=== PATIENT | female | born 1965 | race American Indian/Alaskan Native ===

== ENCOUNTER 2017-01-15 21:32 | Emergency (ER) | payer BC, OTHER ==
[2017-01-15] MEDS ORDERED: Albuterol/Ipratropium 3.0-0.5 MG/3 ML Neb Soln NEB ONE (22:15)
[2017-01-15 22:22] LABS: CHLORIDE,CL 101 mmol/L (101-111); SODIUM,NA 136 mmol/L (135-145)
[2017-01-15] MEDS ORDERED: Nitroglycerin 0.4 MG Tab.SL SL ONE (22:45)
[2017-01-15 22:50] VITALS: BP 121/71
[2017-01-15] MEDS ORDERED: Benzonatate 100 MG Cap PO ONE (23:18)
[2017-01-15] MEDS ORDERED: methylPREDNISolone Sodium Succinate 125 MG/2 ML SDV IVPUSH ONE (23:19)
--- NOTE | 2017-01-16 00:11 | EDM.PDOC ---
ED HISTORY OF PRESENT ILLNESS - General Chief Complaint: Respiratory Problem Stated Complaint: PAIN UNDER ARM [id number] Time Seen by Provider: 01/15/17 21:40 Source of Information: Reports: Patient History Limitations: Reports: No limitations - History of Present Illness INITIAL COMMENTS - FREE TEXT/NARRATIVE: c/o acute onset of cough 3 hours ago with left pain below shoulder blade and axilla, dexcribes as sharp pain worse with cough and movment, tingling in axilla. No cardiac hx. Positive RA on Methotexate, follwoed for rheumatology in [facility]. No recent fever, no body aches. Cough productive at times. Mild SOB with coughing. Timing/Duration: Reports: Hour(s): - Related Data Allergies/ADRs: Allergies Allergy/AdvReac Type Severity Reaction Status Date / Time clindamycin Allergy Rash Verified 01/15/17 21:44 Gold Salts Allergy Rash Verified 01/15/17 21:44 ibuprofen Allergy Rash Verified 01/15/17 21:44 Penicillins Allergy Rash Verified 01/15/17 21:44 tramadol [From Ultram] Allergy Rash Verified 01/15/17 21:44 Home Meds: Home Meds Cevimeline HCl 1 cap PO ASDIRECTED 07/28/16 [History] Etanercept [Enbrel] 1 injection SQ .QTUESDAY 07/28/16 [History] Folic Acid [Folic Acid] 1 mg PO DAILY 07/28/16 [History] Methotrexate [Methotrexate] 15 mg PO .QTUESDAY 07/28/16 [History] Nabumetone 500 mg PO BID 07/28/16 [History] Omeprazole [Omeprazole] 20 mg PO DAILY 07/28/16 [History] Ranitidine [Zantac] 150 mg PO DAILY 07/28/16 [History] Pseudoephedrine [Sudogest] 30 mg PO DAILY 10/27/16 [History] Past Medical History HEENT History: Reports: Cataract, Retinal detachment Cardiovascular History: Reports: None Respiratory History: Reports: None Gastrointestinal History: Reports: GERD Genitourinary History: Reports: None [employer] WORK[employer] History: Reports: Musculoskeletal History: Reports: Arthritis, RA Neurological History: Reports: None Psychiatric History: Reports: None Endocrine/Metabolic History: Reports: None Hematologic History: Reports: None Immunologic History: Reports: None Oncologic (Cancer) History: Reports: None Dermatologic History: Reports: None - Infectious Disease History Infectious Disease History: Reports: Chicken pox - Past Surgical History HEENT Surgical History: Reports: Eye surgery Other HEENT Surgeries/Procedures: surg for detached retina GI Surgical History: Reports: None Female Surgical History: Reports: section Musculoskeletal Surgical History: Reports: Arthroscopic knee, Knee replacement Social & Family History - Family History HEENT: Reports: Cataract, Retinal detachment Cardiac: Reports: Hypertension Respiratory: Reports: None GI: Reports: None : Reports: Renal disease/insufficiency OBGYN: Reports: None Musculoskeletal: Reports: Arthritis Neurological: Reports: Seizure Psychiatric: Reports: None Endocrine/Metabolic: Reports: Diabetes, type I, Diabetes, type II Hematologic: Reports: None Immunologic: Reports: None Oncologic: Reports: Colon - Tobacco Use Smoking Status *Q: Never Smoker Used Tobacco, but Quit: No Second Hand Smoke Exposure: No - Caffeine Use Caffeine Use: Reports: Coffee - Recreational Drug Use Recreational Drug Use: No ED ROS GENERAL - Review of Systems Review Of Systems: See Below Constitutional: Denies: fever, diaphoresis HEENT: Reports: Sinus problem (left with posterior drainage) Respiratory: Reports: cough Cardiovascular: Denies: Edema, Lightheadedness, Palpitations Endocrine: Reports: no symptoms GI/Abdominal: Reports: No symptoms : Reports: no symptoms Musculoskeletal: Reports: back pain (below scapula and axilla, worse with breathing and cough, unchanged with movmement) Skin: Reports: no symptoms Neurological: Reports: no symptoms Psychiatric: Reports: No symptoms Immunologic: Reports: other (Methotrexate use for Rheumatoid arthritis) ED EXAM, GENERAL - Physical Exam Exam: See Below Exam Limited By: No limitations General Appearance: alert, mild distress (frequent cough) Eye Exam: bilateral eye: PERRL Ears: normal TMs Nose: normal inspection Throat/Mouth: Normal inspection Head: atraumatic, normocephalic Neck: normal inspection, full range of motion. No: lymphadenopathy (L), lymphadenopathy (R) Respiratory/Chest: no respiratory distress, lungs clear, other (frequent dry cough). No: decreased breath sounds, wheezing Cardiovascular: normal peripheral pulses, regular rate, rhythm, no edema GI/Abdominal: normal bowel sounds, soft Back Exam: normal inspection Neurological: alert, oriented, normal cognition, no motor/sensory deficits Psychiatric: normal affect Skin Exam: Warm, Dry, Intact, Normal color Course - Vital Signs Last Recorded V/S: Last Vital Signs Temp 97.4 F 01/15/17 22:23 Pulse 59 L 01/15/17 22:23 Resp 16 01/15/17 22:23 BP 121/71 01/15/17 22:49 Pulse Ox 100 01/15/17 22:23 - Orders/Labs/Meds Orders: Active Orders 24 hr Category Date Time Status EKG 12 Lead [EKG Documentation Completion] [RC] URGENT Care 01/15/17 21:48 Active RT Aerosol Therapy [RC] ASDIRECTED Care 01/15/17 22:16 Active Labs: Laboratory Tests 01/15/17 01/15/17 01/15/17 Range/Units 21:55 21:55 21:55 WBC 6.7 (5.0-10.0) 10^3/uL RBC 4.47 (4.2-5.4) 10^6/uL Hgb 12.5 (12.0-16.0) g/dL Hct 37.7 (37.0-47.0) % MCV 84.3 (80-100) fL MCH 28.0 (27.0-34.0) pg MCHC 33.2 (33.0-35.0) g/dL Plt Count 187 (150-450) 10^3/uL Neut % (Auto) 38.0 L (42.2-75.2) % Lymph % (Auto) 48.6 (20.5-50.1) % Ross % (Auto) 9.6 H (2-8) % Eos % (Auto) 3.3 H (1.0-3.0) % Baso % (Auto) 0.5 (0.0-1.0) % PT 8.6 L (9.0-12.0) SEC INR 0.9 (0.9-1.2) D-Dimer, Quantitative 137 (0-400) ng/mL Sodium 136 (135-145) mmol/L Potassium 3.7 (3.6-5.0) mmol/L Chloride 101 (101-111) mmol/L Carbon Dioxide 26.0 (21.0-31.0) mmol/L Anion Gap 12.7 BUN 11 (7-18) mg/dL Creatinine 0.6 (0.6-1.3) mg/dL Est Cr Clr Drug Dosing 106.18 mL/min Estimated GFR (MDRD) > 60 BUN/Creatinine Ratio 18.33 Glucose 100 (74-105) mg/dL Calcium 8.9 (8.4-10.2) mg/dl Total Bilirubin 0.4 (0.2-1.0) mg/dL AST 20 (10-42) IU/L ALT 23 (10-60) IU/L Alkaline Phosphatase 87 (42-121) IU/L CK-MB (CK-2) (0.4-4.7) ng/mL Troponin I 0.03 H* (0.00-0.02) ng/ml C-Reactive Protein (0.0-1.3) mg/dL B-Natriuretic Peptide 52 (0-100) pg/ml Total Protein 7.7 (6.7-8.2) g/dl Albumin 3.9 (3.2-5.5) g/dl Globulin 3.8 Albumin/Globulin Ratio 1.03 Urine Color (YELLOW) Urine Appearance (CLEAR) Urine pH (5.0-9.0) Ur Specific [place] (1.005-1.030) Urine Protein (NEGATIVE) Urine Glucose (UA) (NEGATIVE) Urine Ketones (NEGATIVE) Urine Occult Blood (NEGATIVE) Urine Nitrite (NEGATIVE) Urine Bilirubin (NEGATIVE) Urine Urobilinogen (0.2-1.0) mg/dL Ur Leukocyte Esterase (NEGATIVE) Urine RBC /HPF Urine WBC (0-5/HPF) /HPF Ur Epithelial Cells /HPF Urine Bacteria (0-FEW/HPF) /HPF Urine Opiates Screen (NEGATIVE) Ur Oxycodone Screen (NEGATIVE) Urine Methadone Screen (NEGATIVE) Ur Barbiturates Screen (NEGATIVE) U Tricyclic Antidepress (NEGATIVE) Ur Phencyclidine Scrn (NEGATIVE) Ur Amphetamine Screen (NEGATIVE) U Methamphetamines Scrn (NEGATIVE) Urine MDMA Screen (NEGATIVE) U Benzodiazepines Scrn (NEGATIVE) Urine Cocaine Screen (NEGATIVE) U Marijuana (THC) Screen (NEGATIVE) 01/15/17 01/15/17 01/15/17 Range/Units 21:55 21:55 23:14 WBC (5.0-10.0) 10^3/uL RBC (4.2-5.4) 10^6/uL Hgb (12.0-16.0) g/dL Hct (37.0-47.0) % MCV (80-100) fL MCH (27.0-34.0) pg MCHC (33.0-35.0) g/dL Plt Count (150-450) 10^3/uL Neut % (Auto) (42.2-75.2) % Lymph % (Auto) (20.5-50.1) % Ross % (Auto) (2-8) % Eos % (Auto) (1.0-3.0) % Baso % (Auto) (0.0-1.0) % PT (9.0-12.0) SEC INR (0.9-1.2) D-Dimer, Quantitative (0-400) ng/mL Sodium (135-145) mmol/L Potassium (3.6-5.0) mmol/L Chloride (101-111) mmol/L Carbon Dioxide (21.0-31.0) mmol/L Anion Gap BUN (7-18) mg/dL Creatinine (0.6-1.3) mg/dL Est Cr Clr Drug Dosing mL/min Estimated GFR (MDRD) BUN/Creatinine Ratio Glucose (74-105) mg/dL Calcium (8.4-10.2) mg/dl Total Bilirubin (0.2-1.0) mg/dL AST (10-42) IU/L ALT (10-60) IU/L Alkaline Phosphatase (42-121) IU/L CK-MB (CK-2) 1.70 (0.4-4.7) ng/mL Troponin I (0.00-0.02) ng/ml C-Reactive Protein 2.7 H (0.0-1.3) mg/dL B-Natriuretic Peptide (0-100) pg/ml Total Protein (6.7-8.2) g/dl Albumin (3.2-5.5) g/dl Globulin Albumin/Globulin Ratio Urine Color Yellow (YELLOW) Urine Appearance Clear (CLEAR) Urine pH 6.0 (5.0-9.0) Ur Specific [place] 1.010 (1.005-1.030) Urine Protein Negative (NEGATIVE) Urine Glucose (UA) Negative (NEGATIVE) Urine Ketones Negative (NEGATIVE) Urine Occult Blood Negative (NEGATIVE) Urine Nitrite Negative (NEGATIVE) Urine Bilirubin Negative (NEGATIVE) Urine Urobilinogen 0.2 (0.2-1.0) mg/dL Ur Leukocyte Esterase Negative (NEGATIVE) Urine RBC Not seen /HPF Urine WBC 0-5 (0-5/HPF) /HPF Ur Epithelial Cells Few /HPF Urine Bacteria Few (0-FEW/HPF) /HPF Urine Opiates Screen (NEGATIVE) Ur Oxycodone Screen (NEGATIVE) Urine Methadone Screen (NEGATIVE) Ur Barbiturates Screen (NEGATIVE) U Tricyclic Antidepress (NEGATIVE) Ur Phencyclidine Scrn (NEGATIVE) Ur Amphetamine Screen (NEGATIVE) U Methamphetamines Scrn (NEGATIVE) Urine MDMA Screen (NEGATIVE) U Benzodiazepines Scrn (NEGATIVE) Urine Cocaine Screen (NEGATIVE) U Marijuana (THC) Screen (NEGATIVE) 01/15/17 Range/Units 23:14 WBC (5.0-10.0) 10^3/uL RBC (4.2-5.4) 10^6/uL Hgb (12.0-16.0) g/dL Hct (37.0-47.0) % MCV (80-100) fL MCH (27.0-34.0) pg MCHC (33.0-35.0) g/dL Plt Count (150-450) 10^3/uL Neut % (Auto) (42.2-75.2) % Lymph % (Auto) (20.5-50.1) % Ross % (Auto) (2-8) % Eos % (Auto) (1.0-3.0) % Baso % (Auto) (0.0-1.0) % PT (9.0-12.0) SEC INR (0.9-1.2) D-Dimer, Quantitative (0-400) ng/mL Sodium (135-145) mmol/L Potassium (3.6-5.0) mmol/L Chloride (101-111) mmol/L Carbon Dioxide (21.0-31.0) mmol/L Anion Gap BUN (7-18) mg/dL Creatinine (0.6-1.3) mg/dL Est Cr Clr Drug Dosing mL/min Estimated GFR (MDRD) BUN/Creatinine Ratio Glucose (74-105) mg/dL Calcium (8.4-10.2) mg/dl Total Bilirubin (0.2-1.0) mg/dL AST (10-42) IU/L ALT (10-60) IU/L Alkaline Phosphatase (42-121) IU/L CK-MB (CK-2) (0.4-4.7) ng/mL Troponin I (0.00-0.02) ng/ml C-Reactive Protein (0.0-1.3) mg/dL B-Natriuretic Peptide (0-100) pg/ml Total Protein (6.7-8.2) g/dl Albumin (3.2-5.5) g/dl Globulin Albumin/Globulin Ratio Urine Color (YELLOW) Urine Appearance (CLEAR) Urine pH (5.0-9.0) Ur Specific [place] (1.005-1.030) Urine Protein (NEGATIVE) Urine Glucose (UA) (NEGATIVE) Urine Ketones (NEGATIVE) Urine Occult Blood (NEGATIVE) Urine Nitrite (NEGATIVE) Urine Bilirubin (NEGATIVE) Urine Urobilinogen (0.2-1.0) mg/dL Ur Leukocyte Esterase (NEGATIVE) Urine RBC /HPF Urine WBC (0-5/HPF) /HPF Ur Epithelial Cells /HPF Urine Bacteria (0-FEW/HPF) /HPF Urine Opiates Screen Negative (NEGATIVE) Ur Oxycodone Screen Negative (NEGATIVE) Urine Methadone Screen Negative (NEGATIVE) Ur Barbiturates Screen Negative (NEGATIVE) U Tricyclic Antidepress Negative (NEGATIVE) Ur Phencyclidine Scrn Negative (NEGATIVE) Ur Amphetamine Screen Negative (NEGATIVE) U Methamphetamines Scrn Negative (NEGATIVE) Urine MDMA Screen Negative (NEGATIVE) U Benzodiazepines Scrn Negative (NEGATIVE) Urine Cocaine Screen Negative (NEGATIVE) U Marijuana (THC) Screen Negative (NEGATIVE) Meds: Medications Discontinued Medications Generic Name Dose Route Start Last Admin Trade Name Freq PRN Reason Stop Dose Admin Albuterol/Ipratropium 3 ml 01/15/17 22:15 01/15/17 22:22 Duoneb 3.0-0.5 Mg/3 Ml NEB 01/15/17 22:16 3 ml ONETIME ONE Administration Benzonatate 200 mg 01/15/17 23:18 01/15/17 23:29 Tessalon Perles PO 01/15/17 23:19 200 mg ONETIME ONE Administration Methylprednisolone Sodium Succinate 125 mg 01/15/17 23:19 01/15/17 23:29 Solu-Medrol IVPUSH 01/15/17 23:20 125 mg ONETIME ONE Administration Nitroglycerin 0.4 mg 01/15/17 22:45 01/15/17 22:49 Nitrostat SL 01/15/17 22:46 0.4 mg ONETIME ONE Administration - Re-Assessments/Exams Free Text/Narrative Re-Assessment/Exam: Ekg unremarkable, NSR. Cough improved following neb. Pain unchanged. Nitro without change. Labs returend with elevated troponin, TC consult Dr. Terry recommend transfer. [facility] no tele bed available. Tx via [facility] to [place] for further evaluation elevated troponin. Pain reloved at time of transfer. Vitals stable, Dr. Yuan [place] ED accepting of patient. Departure - Departure Time of Disposition: 00:09 Disposition: DC/Tfer to Acute Hospital 02 Condition: undetermined Clinical Impression: Chest pain, atypical, Elevated troponin, Cough Rheumatoid arthritis Qualifiers: Rheumatoid arthritis location: unspecified site Rheumatoid factor presence: unspecified presence Qualified Code(s): M06.9 - Rheumatoid arthritis, unspecified Forms: ED Department Discharge - My Orders Last 24 Hours: My Active Orders 01/15/17 21:48 EKG 12 Lead [EKG Documentation Completion] [RC] URGENT 01/15/17 22:16 RT Aerosol Therapy [RC] ASDIRECTED - Assessment/Plan Last 24 Hours: My Active Orders 01/15/17 21:48 EKG 12 Lead [EKG Documentation Completion] [RC] URGENT 01/15/17 22:16 RT Aerosol Therapy [RC] ASDIRECTED
--- NOTE | 2017-03-01 12:52 | EKG ---
01/15/2017 - FERCHO ANDERSON - Twelve-lead EKG shows normal sinus rhythm. No significant ST elevation or ST depression noted on this 12-lead EKG. Nonspecific ST-T changes noted on lead V2, V3. Heart rate of 64. [facility] /[id number]
== END 2017-01-16 00:15 ==
LOC: DL.ED 21:32
DX: R07.89 Other chest pain (principal); M06.9 Rheumatoid arthritis, unspecified; R79.89 Other specified abnormal findings of blood chemistry; K21.9 Gastro-esophageal reflux disease without esophagitis; M19.90 Unspecified osteoarthritis, unspecified site; Z88.0 Allergy status to penicillin; Z88.6 Allergy status to analgesic agent; Z88.5 Allergy status to narcotic agent; Z88.1 Allergy status to other antibiotic agents; Z79.899 Other long term (current) drug therapy
CPT/HCPCS: 36415; 71020; 80053; 80305; 81001; 82553; 83880; 84484; 85025; 85379; 85610; 86140; 87804; 93005; 94640; 96374; 99285; A9270; J2930

== ENCOUNTER 2017-10-14 07:03 | Day surgery (SDC) | payer BC, OTHER ==
[~2017-10-14 07:03] MED LIST: Lactated Ringers 1,000 ML IV SCH; Sodium Chloride 0.9% 10 ML Syringe FLUSH PRN
[2017-10-14] MEDS ORDERED: Ondansetron 4 MG/2 ML SDV IV ONE (07:04)
[2017-10-14] MEDS ORDERED: Lidocaine 1% 30 ML SDV INJECT ONE ×2 (07:04→11:30)
[2017-10-14] MEDS ORDERED: Lidocaine 2% 20 ML MDV INJECT ONE (07:04)
[2017-10-14] MEDS ORDERED: Midazolam 1 MG/ML 2 ML SDV IV ONE (07:04)
[2017-10-14] MEDS ORDERED: fentaNYL 100 MCG/2 ML SDV IV ONE (07:04)
[2017-10-14] MEDS ORDERED: Dexamethasone 4 MG/ML SDV IV ONE (07:04)
[2017-10-14] MEDS ORDERED: Propofol 200 MG/20 ML SDV IV ONE (07:04)
[2017-10-14] MEDS ORDERED: Lactated Ringers 1,000 ML IV ONE (07:04)
[2017-10-14] MEDS ORDERED: Ketorolac 30 MG/ML SDV IVPUSH ONE (07:04)
[2017-10-14] MEDS ORDERED: Bupivacaine 0.25% 10 ML SDV INJECT ONE (07:04)
[2017-10-14] MEDS ORDERED: Propofol 200 MG/20 ML SDV ONE (07:23)
[2017-10-14] MEDS ORDERED: fentaNYL 100 MCG/2 ML SDV ONE (07:23)
[2017-10-14] MEDS ORDERED: Midazolam 1 MG/ML 2 ML SDV ONE (07:23)
[2017-10-14] MEDS ORDERED: Bupivacaine 0.5% 10 ML SDV ONE (07:55)
[2017-10-14] MEDS ORDERED: Lidocaine 1% 30 ML SDV ONE (07:55)
[2017-10-14] MEDS ORDERED: Lidocaine 1% 10 ML MDV INJECT ONE (08:21)
[2017-10-14] MEDS ORDERED: Bupivacaine 0.5% 10 ML SDV INJECT ONE ×2 (08:21→11:30)
[2017-10-14] MEDS ORDERED: Acetaminophen/oxyCODONE 325-5 MG Tab PO PRN (12:05)
--- NOTE | 2017-10-14 12:05 | PCM.OPNOTE ---
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 TT 92 mins, down then back up for 57 mins. [place] 3.0 cannulated screws, matteo place and 3.5 non locking screws placed. Well padded L&U splint applied with foot in neutral.
[2017-10-14] MEDS ORDERED: fentaNYL 100 MCG/2 ML SDV IVPUSH ONE (12:28)
--- NOTE | 2017-10-14 17:10 | OR ---
DATE: 10/14/2017 PREOPERATIVE DIAGNOSES: 1. 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 2. Arthritis of the left first metatarsophalangeal joint. POSTOPERATIVE DIAGNOSES: 1. 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 2. Arthritis of the left first metatarsophalangeal joint. PROCEDURES PERFORMED: 1. Revisional first metatarsal cuneiform joint arthrodesis with bone matrix. 2. Left foot first metatarsophalangeal joint arthrodesis. ANESTHESIA: LMA with preoperative local block of 10 mL of 1:1 mixture of 1% lidocaine plain and 0.5% Marcaine plain. TOURNIQUET TIME: 92 minutes and then it was let down for greater than 20 minutes and let back up for 57 minutes. Pneumatic ankle tourniquet. ESTIMATED BLOOD LOSS: Minimal. SPECIMEN: None. COMPLICATIONS: None. INDICATIONS: Amada is a 51-year-old female, who presents for bilateral foot pain. Both feet have been bothering her significantly. She does have rheumatoid arthritis. I saw her last year and did a bunionectomy of her left foot, it was a Lapidus bunionectomy and she reports that she is still having pain at the top of her foot in the surgery area, feels like there is a painful lump that pops in and out and is palpable for her. She has a sharp pain at the top of her foot in that area and also to the big toe joint. She states the big toe joint seems to be bothering her on that foot whenever she is walking or standing. She tries to wear a good shoe with an insert with no relief. X-rays of her left foot reveal 2 screws intact to the first metatarsal cuneiform joint, there appears to be a nonunion at that site with a joint space still present, especially at the dorsal aspect where there was some spurring and also some spurring around the screw head. There are arthritic changes at the first metatarsophalangeal joint as well. The patient voiced good understanding of proposed procedure and possible complications, elects to have surgery at this time. DESCRIPTION OF THE PROCEDURE: The patient was taken the operating room, laid in supine position. After adequate anesthesia induction as described above, the left foot was prepped and draped in the usual sterile fashion. A pneumatic ankle tourniquet was inflated to 225 mmHg. Attention was then directed to the left foot at the old incision site. An approximately 8 cm linear incision was made along the previous surgical incision. Sharp and blunt dissection were carried down to the level of the periosteum with care to gently retract all vital structures. A linear capsulotomy was performed and the capsule was reflected to expose the first metatarsophalangeal joint. A linear capsulotomy was also made at the first metatarsal cuneiform joint to expose the nonunion site. The 2 screws at that site were located and noted to be loose at this time. Both screws were removed in their entirety from the foot. The joint was then identified and noted to be filled with fibrocartilage. All fibrocartilage was removed with a curette and a bur. A 0.062 inch K-wire was used to fenestrate both the first metatarsal and the cuneiform to help with healing. Bone matrix was applied to the area, Susan BIO4 bone matrix and a partially threaded 3-0 [place] cannulated screw was used for a compression screw. A [place] plate with 3.5 screws were then placed at the dorsal medial aspect of that nonunion site. Fluoroscopy was used throughout this procedure to verify proper reduction of the deformity as well as good compression at the fusion site and proper screw placement and fixation. The area was noted to be stable with varus, valgus, and axial forces applied. Attention was then directed to the first metatarsophalangeal joint which was inspected and noted to have approximately 75% of the cartilage denuded, mostly at the medial and central aspect, it was still good at the very lateral aspect. It was decided at this time that the joint could not be saved. A curette was used to remove all cartilage from the first metatarsophalangeal joint and a 0.062 inch K-wire was used to fenestrate the joint surfaces as well. The remaining bone matrix was placed at the site and 2 crossing 3.0 Susan cannulated screws were placed at the fusion site. Fluoroscopy was used again throughout this procedure to verify adequate placement of the hallux on the first metatarsal, which was in a very slight varus and the toenail of the big toe was lined up with the lesser digits. The hallux was noted to be in near anatomic alignment at this time with loading of the foot. Fluoroscopy was also used to verify proper angle of the hallux on the first metatarsal on the lateral view and that the screws were in good placement. Good compression was noted at the first metatarsophalangeal joint as well. Both areas were then irrigated with copious amounts of sterile saline. Capsular closure was completed with 3-0 Vicryl and skin closure was completed with 4-0 nylon. The area was then dressed with Xeroform to the incision site, fluffs, Webril, and a well-padded L and U splint with the foot in neutral position. The patient tolerated the procedure and anesthesia well and left the operating room for recovery with vital signs stable in good condition with vascular status noted to be intact to the left foot as noted by immediate hyperemia to all digits upon deflation of the ankle tourniquet. The tourniquet time was 92 minutes, it was then let down for greater than 20 minutes and let back up for 57 minutes. The patient was then discharged home when she met hospital discharge requirements. [facility] /[id number]
[2017-10-15 08:02] VITALS: BP 143/78
== END 2017-10-14 14:55 | disposition home or self-care (01) ==
LOC: DL.SDS 07:03
PROVIDERS: ATTEND Podiatrist
DX: M96.0 Pseudarthrosis after fusion or arthrodesis (principal); T84.84XA Pain due to internal orthopedic prosthetic devices, implants and grafts, initial encounter; M19.072 Primary osteoarthritis, left ankle and foot; K21.9 Gastro-esophageal reflux disease without esophagitis; M06.9 Rheumatoid arthritis, unspecified; E63.9 Nutritional deficiency, unspecified; H04.129 Dry eye syndrome of unspecified lacrimal gland; F34.1 Dysthymic disorder; M25.521 Pain in right elbow; Z96.651 Presence of right artificial knee joint; Z98.890 Other specified postprocedural states; Z88.0 Allergy status to penicillin
CPT/HCPCS: 28740; 28750; 81025; C1713; C1776; J1100; J1885; J2250; J2405; J2704; J3010; J7120; A9270-GY

== ENCOUNTER 2018-03-01 07:09 | Day surgery (SDC) | payer BC, OTHER ==
[~2018-03-01 07:09] MED LIST changes: -Lactated Ringers 1,000 ML IV SCH; +Midazolam 1 MG/ML 2 ML SDV ONE; -Sodium Chloride 0.9% 10 ML Syringe FLUSH PRN; +fentaNYL 100 MCG/2 ML SDV ONE
[2018-03-01] MEDS ORDERED: Midazolam 1 MG/ML 2 ML SDV IV ONE ×3 (07:10→07:58)
[2018-03-01] MEDS ORDERED: fentaNYL 100 MCG/2 ML SDV IV ONE ×3 (07:10→07:57)
[2018-03-01 10:05] VITALS: BP 112/80
[2018-03-01] MEDS ORDERED: Dextrose 5%-0.45% NaCl 1,000 ML IV SCH (10:15)
--- NOTE | 2018-03-01 14:15 | OR ---
DATE: 03/01/2018 PROCEDURE: Esophagogastroduodenoscopy and multiple pinch biopsies. INSTRUMENT USED: GIF-H 180 Olympus video panendoscope. PREMEDICATIONS: No oral topical anesthesia used. Fentanyl 100 mcg intravenous, Versed 2 mg intravenous. The procedure was done under pulse oximetry, BP recording, and athletic monitor. INDICATION: The patient with longstanding heartburn and dyspepsia, unexplained and not responsive to medical measures, on ferry terminal agent NSAIDs and also on multiple acid suppressants. Has positive stools FIT. Esophagogastroduodenoscopy is performed for detection of any active erosive lesions, [place] esophagus and/or malignancy also under consideration, H. pylori status to be determined, endoscopic hemostasis therapy if needed. DESCRIPTION OF PROCEDURE: The scope was passed with ease. Adequate visualization of the esophagus was made from proximal to distal areas. No upper esophageal lesions identified. No distal esophageal stricture. No uphill or downhill esophageal varices. No Merly-Oreilly tear. No evidence of erosive esophagitis by [place] criteria. No esophageal polyp or tumor mass identified. Z-line was seen at around 40 cm distal to the oral verge, configuration consistent with Grade 1 by ZAP classification. No proximal gastric varices noted. Gastric fundus examination by retroflexion showed no polypoid lesions. No gastric ulcer, malignant mass, or vascular ectasia identified. Scattered gastric antral erosions were noted without bleeding from them. Duodenal bulb showed no ulcer. Visualized second part of the duodenum was unremarkable. Multiple pinch biopsies were taken from the gastric antrum and proximal body and sent for PyloriTek test for H. pylori and if negative in an hour, the tissue is to be sent for histopathology. No bleeding was noted from any of the visualized areas at the completion of examination. Photographs were taken of the duodenal bulb, gastric antrum, fundus, and distal esophagus. IMPRESSION: Gastric antral erosions. The patient tolerated procedure well. [facility] /[id number]
--- NOTE | 2018-03-01 15:04 | LETTER ---
03/01/2018 Es Mariano, NARCISO [facility] [address] [place] [address] RE: AMADA ANDERSON : 1965 Dear [place]errat: Ms. Amada Anderson had esophagogastroduodenoscopy done this morning and she tolerated the procedure well. I herewith send a copy of the endoscopy note and photographs for your review. She is recommended to keep away from NSAIDs, she has been advised to discontinue ranitidine and famotidine and is put on omeprazole 20 mg p.o. daily a.m. Thank you. Sincerely, MOD /[id number]
== END 2018-03-01 10:08 | disposition home or self-care (01) ==
LOC: DL.ENDO 07:09
PROVIDERS: ATTEND Internal Medicine Gastroenterology
DX: K31.89 Other diseases of stomach and duodenum (principal); E66.9 Obesity, unspecified; Z88.0 Allergy status to penicillin; Z88.1 Allergy status to other antibiotic agents; Z88.8 Allergy status to other drugs, medicaments and biological substances; Z91.018 Allergy to other foods
CPT/HCPCS: 43239; 87077; J7042; J2250; J3010

== ENCOUNTER 2018-03-08 07:03 | Day surgery (SDC) | payer OTHER ==
[~2018-03-08 07:03] MED LIST changes: +Dextrose 5%-0.45% NaCl 1,000 ML IV SCH; +Sodium Chloride 0.9% 10 ML Syringe FLUSH PRN
[2018-03-08] MEDS ORDERED: Midazolam 1 MG/ML 2 ML SDV IV ONE ×7 (07:04→08:11)
[2018-03-08] MEDS ORDERED: fentaNYL 100 MCG/2 ML SDV IV ONE ×5 (07:04→08:15)
--- NOTE | 2018-03-08 12:20 | OR ---
DATE: 03/08/2018 PROCEDURE: Total colonoscopy. INSTRUMENT USED: PCF-H180 [place] Olympus video colonoscope. PREMEDICATIONS: Fentanyl 150 mcg intravenous, Versed 4 mg intravenous. Nasal O2 cannula. The procedure was done under pulse oximetry, BP recording, and compliance monitor. INDICATION: The patient with history rectal bleeding and Hemoccult-positive stools. Colonoscopic examination is done for detection of any polypoid lesions and removal, endoscopic hemostasis therapy if needed. DESCRIPTION OF PROCEDURE: Initial rectal exam was unremarkable. Rigid anoscopy showed small internal hemorrhoids without bleeding from them. The colonoscope was passed with ease up to the ileocecal area, photographs were taken of the normal-appearing cecum identified by landmarks of appendiceal orifice and double- bulged ileocecal folds. No bleeding was noted from any of the visualized areas at the commencement of the examination. The bowel examination was adequate. No stricture. No vascular ectasia. No large isolated ulcerations seen. No evidence of diffuse inflammatory bowel disease in the form of friability, contact bleeding, or ulcerations. No polyp or tumor mass identified. Probing the proximal sides of folds and flexures, using adequate distention and clearing up the stool material, withdrawal of the scope was made, cecum to rectum time over 6 minutes. No bleeding was noted from any of the visualized areas at the completion of exam. IMPRESSION: Internal hemorrhoids. The patient tolerated the procedure well. [facility] /[id number]
[2018-03-08 12:31] VITALS: BP 120/72
--- NOTE | 2018-03-08 14:34 | LETTER ---
03/08/2018 Es Mariano, NARCISO [facility] [address] [place] [address] RE: AMADA ANDERSON : 1965 Dear Ahmetkatherinebony: Ms. Amada Anderson had colonoscopic examination this morning and she tolerated the procedure well. I herewith send a copy of the endoscopy note and photographs for your review. Thank you. Sincerely, [facility] /[id number]
== END 2018-03-08 10:00 | disposition home or self-care (01) ==
LOC: DL.ENDO 07:03
PROVIDERS: ATTEND Internal Medicine Gastroenterology
DX: K62.5 Hemorrhage of anus and rectum (principal); K64.8 Other hemorrhoids; E66.09 Other obesity due to excess calories; M06.9 Rheumatoid arthritis, unspecified; Z88.1 Allergy status to other antibiotic agents; Z88.0 Allergy status to penicillin; Z88.5 Allergy status to narcotic agent; Z88.6 Allergy status to analgesic agent; Z88.8 Allergy status to other drugs, medicaments and biological substances
CPT/HCPCS: 45378; J7042; J2250; J3010

== ENCOUNTER 2019-03-30 08:10 | Day surgery (SDC) | payer SELFPAY ==
[~2019-03-30 08:10] MED LIST changes: -Dextrose 5%-0.45% NaCl 1,000 ML IV SCH; +Lactated Ringers 1,000 ML IV SCH; -Midazolam 1 MG/ML 2 ML SDV ONE; -fentaNYL 100 MCG/2 ML SDV ONE
[2019-03-30] MEDS ORDERED: Ketorolac 30 MG/ML SDV IVPUSH ONE (08:11)
[2019-03-30] MEDS ORDERED: Ondansetron 4 MG/2 ML SDV IV ONE (08:11)
[2019-03-30] MEDS ORDERED: fentaNYL 100 MCG/2 ML SDV IV ONE (08:11)
[2019-03-30] MEDS ORDERED: Propofol 200 MG/20 ML SDV IV ONE (08:11)
[2019-03-30] MEDS ORDERED: Lidocaine 1% 30 ML SDV INJECT ONE ×3 (08:11→10:49)
[2019-03-30] MEDS ORDERED: Bupivacaine 0.5% 30 ML SDV INJECT ONE ×3 (08:11→10:49)
[2019-03-30] MEDS ORDERED: Midazolam 1 MG/ML 2 ML SDV IV ONE (08:11)
[2019-03-30] MEDS ORDERED: Dexamethasone 4 MG/ML SDV IV ONE (08:11)
[2019-03-30] MEDS ORDERED: Bupivacaine 0.5% 30 ML SDV ONE (09:26)
[2019-03-30] MEDS ORDERED: Lidocaine 1% 30 ML SDV ONE (09:26)
[2019-03-30] MEDS ORDERED: Acetaminophen/oxyCODONE 325-5 MG Tab PO PRN (11:16)
--- NOTE | 2019-03-30 11:19 | PCM.OPNOTE ---
- General Post-Op/Procedure Note Date of Surgery/Procedure: 03/30/19 Operative Procedure(s): left foot hardware removal Pre Op Diagnosis: left foot painful hardware Post-Op Diagnosis: robbie Anesthesia Technique: Local, MAC Primary Surgeon: Gissel Thompson Anesthesia Provider: Darrion VELAZQUEZ in mLs: 5 Complications: none Condition: Good Free Text/Narrative:: Pt tolerated procedure well and was transported with vascular status intact to left foot. Well padded compression dressing applied.
[2019-03-30 13:44] VITALS: BP 113/68; PULSE 66
--- NOTE | 2019-03-30 17:51 | OR ---
DATE: 03/30/2019 PREOPERATIVE DIAGNOSIS: Left foot painful hardware. POSTOPERATIVE DIAGNOSIS: Left foot painful hardware. PROCEDURE PERFORMED: Left foot painful hardware removal. ANESTHESIA: Local MAC with preoperative local block of 10 mL of 1:1 mixture of 1% lidocaine plain and 0.5% Marcaine plain. TOURNIQUET TIME: 39 minutes, pneumatic ankle tourniquet. ESTIMATED BLOOD LOSS: Minimal. SPECIMEN: None. COMPLICATIONS: None. INDICATIONS: Amada is a 53-year-old female, who presents status post left foot surgery, now with painful hardware and left foot. She states that she can feel that hardware mostly on the medial midfoot area and it does bother her when she is wearing shoes. It also does swell up on her every now and then. Her surgeries have otherwise healed well. She does have rheumatoid arthritis. X-rays of the left foot revealed hardware intact to the 1st metatarsal cuneiform joint as well as the 1st metatarsophalangeal joint and both joints appear well fused with good trabecular bridging. The patient voiced good understanding of proposed procedure and possible complications and elects to have surgery at this time. DESCRIPTION OF PROCEDURE: The patient was taken to the operating room lying in a supine position. After adequate anesthesia induction as described above, the left foot was prepped and draped in the usual sterile fashion. A pneumatic ankle tourniquet was inflated to 225 mmHg. Attention was then directed to the old incision area, this was inferiorly hypertrophic and she asked for this old incision to be revised. I made an incision and ellipsed out the old incision area. Sharp and blunt dissection were performed down to the level of the hardware periosteum being careful to retract all neurovascular bundles. A linear capsulotomy was made overlying the hardware at the 1st metatarsophalangeal joint as well as the 1st metatarsal cuneiform joint, these were both well healed and well fused. The screws and plate were removed from the 1st metatarsal cuneiform area. I was not able to visualize the remaining cannulated screw in that area and it was noted to be sticking out of the bone or prominent in any way, it was completely buried, so we left that intact. I also removed the 3.0 cannulated screws at the 1st metatarsophalangeal area and these were completely removed. All areas were irrigated with copious amounts of sterile saline. Deep closure was completed with 3-0 Vicryl and skin closure was completed with 4-0 nylon. The patient tolerated the procedure well and left the operating room for recovery with vital signs stable in good condition with vascular status intact to the left foot as noted by immediate hyperemia to all digits upon deflation of the ankle tourniquet. The foot was dressed with Xeroform to the incision site, fluffs, Webril, and an Chuck wrap. She will be placed in a postoperative shoe. The patient was then discharged home when she met hospital discharge requirements. [facility] /[id number]
== END 2019-03-30 12:30 | disposition home or self-care (01) ==
LOC: DL.SDS 08:10
PROVIDERS: ATTEND Podiatrist
DX: T84.84XA Pain due to internal orthopedic prosthetic devices, implants and grafts, initial encounter (principal); K21.9 Gastro-esophageal reflux disease without esophagitis; M06.9 Rheumatoid arthritis, unspecified; E66.9 Obesity, unspecified; Z68.32 Body mass index [BMI] 32.0-32.9, adult; Z88.5 Allergy status to narcotic agent; Z88.0 Allergy status to penicillin; Z88.1 Allergy status to other antibiotic agents; Z88.6 Allergy status to analgesic agent; Z79.899 Other long term (current) drug therapy; Z98.890 Other specified postprocedural states
CPT/HCPCS: 20680; J1100; J1885; J2001; J2250; J2405; J2704; J3010; J3490; J7120; 01470

== ENCOUNTER 2019-09-01 14:08 | Emergency (ER) | payer OTHER ==
[2019-09-01 15:51] VITALS: BP 148/85; PULSE 72
[2019-09-01] MEDS ORDERED: Promethazine 25 MG/ML SDV IM ONE (16:27)
[2019-09-01] MEDS ORDERED: Butorphanol 2 MG/ML SDV IM ONE (16:27)
--- NOTE | 2019-09-01 16:34 | EDM.PDOC ---
ED HPI GENERAL MEDICAL PROBLEM - General Chief Complaint: Headache Stated Complaint: PAIN IN BACK OF HEAD Time Seen by Provider: 09/01/19 16:20 Source of Information: Reports: Patient, RN, RN Notes Reviewed History Limitations: Reports: No Limitations - History of Present Illness INITIAL COMMENTS - FREE TEXT/NARRATIVE: patient to ER with complaint of pain to the back of the head and being very dizzy this morning. Patient states this began about 9:00 AM today. Patient reports tingling/numbness down the right arm intermittently. He reports a urine/ blood taste in the mouth. Rates headache a 04/17. Admits to blurred vision, dizziness on and off, headache, nausea, diarrhea, dry cough. Denies fever, chills, vomiting, or sore throat. Patient denies trauma, falling, hitting her head, or heavy lifting. When pointing to where the pain is, patient points to the right lateral neck, into the shoulder, and down the arm. 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 Occipital Headache Pain Score (Numeric/FACES): 8 - Related Data Allergies Allergy/AdvReac Type Severity Reaction Status Date / Time clindamycin Allergy Rash Verified 09/01/19 18:24 Gold Salts Allergy Rash Verified 09/01/19 18:24 ibuprofen Allergy Rash Verified 09/01/19 18:24 Penicillins Allergy Rash Verified 09/01/19 18:24 tramadol [From Ultram] Allergy Rash Verified 09/01/19 18:24 hydrocodone AdvReac Headache Verified 09/01/19 18:24 Home Meds: Home Meds Cevimeline HCl 1 cap PO BID 07/28/16 [History] Folic Acid 1 mg PO BID 07/28/16 [History] Methotrexate 2.5 mg PO .QTUESDAY 07/28/16 [History] Omeprazole 20 mg PO DAILY PRN 07/28/16 [History] Pseudoephedrine HCl [Sudafed] 30 mg PO .PRN PRN 03/04/18 [History] Calcium Carb & Citrate/Vit D3 [Citracal + D ER] 1 tab PO DAILY 03/08/18 [History ] Multivitamin [Multivitamins] 1 tab PO DAILY 03/08/18 [History] Ascorbic Acid 250 mg PO DAILY 09/06/18 [History] Cholecalciferol (Vitamin D3) [Delta D3] 400 units PO DAILY 09/06/18 [History] Diclofenac Sodium [Voltaren] 1 applic TOP ASDIRECTED 09/06/18 [History] Famotidine 20 mg PO BID 09/06/18 [History] Pseudoephedrine HCl [Sudafed] 30 mg PO ASDIRECTED 03/29/19 [History] oxyCODONE HCl/Acetaminophen [Percocet 5-325 mg Tablet] 1 tab PO ASDIRECTED PRN 03/29/19 [History] Golimumab [Simponi] 50 mg SQ ASDIRECTED 03/30/19 [History] Pilocarpine [Salagen] 5 mg PO .Q6PRN PRN 03/30/19 [History] Past Medical History HEENT History: Reports: Cataract, Impaired Vision, Retinal Detachment, Other ( See Below) Other HEENT History: DRY EYES. WEARS CORRECTIVE EYEWARE & CONTACT LENS IN LEFT EYE. UPPER AND LOWER DENTURES Cardiovascular History: Reports: None Respiratory History: Reports: None Gastrointestinal History: Reports: GERD Genitourinary History: Reports: None NETWORK OPERATIONS LEAD History: Reports: , Spontaneous , Other (See Below) Other NETWORK OPERATIONS LEAD History: PREMENOPAUSAL Musculoskeletal History: Reports: RA Neurological History: Reports: None Psychiatric History: Reports: Depression Endocrine/Metabolic History: Reports: Obesity/BMI 30+ Hematologic History: Reports: Anemia, Blood Transfusion(s) Immunologic History: Reports: Immunosuppression Oncologic (Cancer) History: Reports: None Dermatologic History: Reports: None - Infectious Disease History Infectious Disease History: Reports: Chicken Pox, Rheumatic Fever - Past Surgical History Head Surgeries/Procedures: Reports: None HEENT Surgical History: Reports: Cataract Surgery, Eye Surgery Other HEENT Surgeries/Procedures: surg for detached retina. INTRAOCULAR LENS IMPLANT RIGHT EYE Cardiovascular Surgical History: Reports: None Respiratory Surgical History: Reports: None GI Surgical History: Reports: Colonoscopy, EGD Female Surgical History: Reports: Section Endocrine Surgical History: Reports: None Neurological Surgical History: Reports: None Musculoskeletal Surgical History: Reports: Knee Replacement, Other (See Below) Other Musculoskeletal Surgeries/Procedures:: Right knee orthroscopy. Foot surgery, left foot 1st metatarsal cuneiform arthrodesis/bunionectomy Oncologic Surgical History: Reports: None Dermatological Surgical History: Reports: None Social & Family History - Family History HEENT: Reports: Cataract, Retinal Detachment Cardiac: Reports: Hypertension, [place] Respiratory: Reports: None GI: Reports: None, Other (See Below) Other GI Family History: HEPATIC FAILURE(R/T ALCOHOLISM) - FATHER : Reports: Renal Disease/Insufficiency OBGYN: Reports: None Musculoskeletal: Reports: Arthritis Neurological: Reports: Seizure Psychiatric: Reports: None Endocrine/Metabolic: Reports: Diabetes, Type I, Diabetes, type II Hematologic: Reports: None Immunologic: Reports: None Oncologic: Reports: Colon - Tobacco Use Smoking Status *Q: Never Smoker Second Hand Smoke Exposure: No - Caffeine Use Caffeine Use: Reports: Coffee Other Caffeine Use: APPROX 5 CUPS DAILY - Recreational Drug Use Recreational Drug Use: No ED ROS GENERAL - Review of Systems Review Of Systems: ROS reveals no pertinent complaints other than HPI. - Physical Exam Exam: See Below Exam Limited By: No Limitations General Appearance: Alert, WD/WN, Moderate Distress Eye Exam: Bilateral Eye: EOMI, Normal Inspection Ears: Normal External Exam, Hearing Grossly Normal Nose: Normal Inspection Throat/Mouth: Normal Inspection, Normal Voice, No Airway Compromise Head Exam: Atraumatic, Normocephalic Neck: Normal Inspection, Supple, Non-Tender, Full Range of Motion Respiratory/Chest: No Respiratory Distress, Lungs Clear, Normal Breath Sounds, No Accessory Muscle Use, Chest Non-Tender Cardiovascular: Normal Peripheral Pulses, Regular Rate, Rhythm, No Edema, No Gallop, No JVD, No Murmur, No Rub GI/Abdominal: Normal Bowel Sounds, Soft, Non-Tender (Female) Exam: Deferred Rectal (Female) Exam: Deferred Neuro Exam (Abbreviated): Alert, Oriented, CN II-XII Intact, Normal Cognition, Normal Gait, Normal Reflexes, No Motor/Sensory Deficits Back Exam: Normal Inspection, Full Range of Motion, NT Extremities: Normal Inspection, Normal Range of Motion, Non-Tender, No Pedal Edema, Normal Capillary Refill Psychiatric: Normal Affect, Normal Mood Skin Exam: Warm, Dry, Intact, Normal Color, No Rash Course - Vital Signs Last Recorded V/S: Last Vital Signs Temp 97.4 F 09/01/19 15:40 Pulse 72 09/01/19 15:40 Resp 16 09/01/19 15:40 BP 148/85 H 09/01/19 15:40 Pulse Ox 98 09/01/19 15:40 - Orders/Labs/Meds Labs: Laboratory Tests 09/01/19 09/01/19 Range/Units 16:50 16:50 WBC 5.3 (5.0-10.0) 10^3/uL RBC 4.66 (4.2-5.4) 10^6/uL Hgb 13.2 (12.0-16.0) g/dL Hct 40.1 (37.0-47.0) % MCV 86.1 (80-100) fL MCH 28.3 (27.0-34.0) pg MCHC 32.9 L (33.0-35.0) g/dL Plt Count 204 (150-450) 10^3/uL Neut % (Auto) 47.9 (42.2-75.2) % Lymph % (Auto) 40.2 (20.5-50.1) % [place] % (Auto) 10.0 H (2-8) % Eos % (Auto) 1.3 (1.0-3.0) % Baso % (Auto) 0.6 (0.0-1.0) % Sodium 139 (135-145) mmol/L Potassium 3.5 L (3.6-5.0) mmol/L Chloride 107 (101-111) mmol/L Carbon Dioxide 24.0 (21.0-31.0) mmol/L Anion Gap 11.5 BUN 17 (7-18) mg/dL Creatinine 0.6 (0.6-1.3) mg/dL Est Cr Clr Drug Dosing 103.84 mL/min Estimated GFR (MDRD) > 60 BUN/Creatinine Ratio 28.33 Glucose 91 (74-105) mg/dL Calcium 8.9 (8.4-10.2) mg/dl Total Bilirubin 0.7 (0.2-1.0) mg/dL AST 19 (10-42) IU/L ALT 18 (10-60) IU/L Alkaline Phosphatase 75 (42-121) IU/L Total Protein 7.4 (6.7-8.2) g/dl Albumin 3.9 (3.2-5.5) g/dl Globulin 3.5 Albumin/Globulin Ratio 1.11 Meds: Medications Discontinued Medications Generic Name Dose Route Start Last Admin Trade Name Freq PRN Reason Stop Dose Admin Butorphanol Tartrate 2 mg 09/01/19 16:27 09/01/19 16:43 Stadol IM 09/01/19 16:28 2 mg ONETIME ONE Administration Promethazine HCl 25 mg 09/01/19 16:27 09/01/19 16:43 Phenergan IM 09/01/19 16:28 25 mg ONETIME ONE Administration - Radiology Interpretation Free Text/Narrative:: Head CT wo contrast: FINDINGS: Brain: Question of possible subtle peripheral hyperdensity and a left perisylvian arterial branch, see image 20 series 5. No hemorrhage. Unremarkable white matter. No mass effect. Ventricles: Normal. No ventriculomegaly. Bones/joints: Unremarkable. No acute fracture. Sinuses: Visualized sinuses are unremarkable. No fluid levels. Mastoid air cells: Visualized mastoid air cells are well aerated. Soft tissues: Unremarkable. IMPRESSION: No acute intracranial hemorrhage. Question of possible hyperdense peripheral left MCA branch. If there is suspicion for CVA, CT would be advised to further evaluate. Thank you for allowing us to participate in the care of your patient. Dictated and Authenticated by: Refugio Desai MD 09/01/2019 5:10 PM Central Time ([place] & [place]) C Spine CT wo contrast: FINDINGS: Vertebrae: No acute fracture. Normal alignment. Discs/Spinal canal/Neural foramina: No spinal stenosis. Soft tissues: Unremarkable. Lungs: Lung apices are normal. IMPRESSION: No acute fracture or dislocation. Thank you for allowing us to participate in the care of your patient. Dictated and Authenticated by: Refugio Desai MD 09/01/2019 5:11 PM Central Time ([place] & [place]) See rad report - Re-Assessments/Exams Free Text/Narrative Re-Assessment/Exam: discussed findings of head CT and lab work with patient. Discussed signs and symptoms of stroke in the NIH scale with the patient. patient has no focal deficits at this time. Patient was encouraged to follow up with her primary care provider in the clinic. 09/02/19 10:34 Departure - Departure Time of Disposition: 17:42 Disposition: Home, Self-Care 01 Condition: Fair Clinical Impression: Tension-type headache - Discharge Information *PRESCRIPTION DRUG MONITORING PROGRAM REVIEWED*: No *COPY OF PRESCRIPTION DRUG MONITORING REPORT IN PATIENT MICHAEL: No Instructions: Tension Headache, Adult, [id number] Referrals: PCP,Unobtain [Primary Care Provider] - Forms: ED Department Discharge Additional Instructions: may use heat to the area May use Tylenol as directed for pain Rx: Flexeril/cyclobenzaprine Drink plenty of water Follow-up with her primary care provider if no improvement Return to the ER with any worsening of symptoms rest
[2019-09-01 17:16] LABS: ANION GAP 11.5; CHLORIDE,CL 107 mmol/L (101-111); SODIUM,NA 139 mmol/L (135-145)
== END 2019-09-01 18:30 | disposition home or self-care (01) ==
LOC: DL.ED 14:08
DX: G44.209 Tension-type headache, unspecified, not intractable (principal); E66.9 Obesity, unspecified; K21.9 Gastro-esophageal reflux disease without esophagitis; Z68.30 Body mass index [BMI] 30.0-30.9, adult; Z88.1 Allergy status to other antibiotic agents; Z88.6 Allergy status to analgesic agent; Z88.5 Allergy status to narcotic agent; Z88.0 Allergy status to penicillin; Z88.8 Allergy status to other drugs, medicaments and biological substances; Z91.048 Other nonmedicinal substance allergy status; Z79.899 Other long term (current) drug therapy
CPT/HCPCS: 36415; 70450; 72125; 80053; 85025; 96372; 99284; J0595; J2550

== ENCOUNTER 2020-09-18 19:25 | Emergency (ER) | payer MEDICARE, OTHER ==
--- NOTE | 2020-09-18 20:32 | EDM.PDOC ---
ED HPI GENERAL MEDICAL PROBLEM - General Chief Complaint: Headache Stated Complaint: NAUSEA, PRESS IN HEAD, HEADACHES Time Seen by Provider: 09/18/20 19:50 Source of Information: Reports: Patient, RN Notes Reviewed History Limitations: Reports: No Limitations - History of Present Illness INITIAL COMMENTS - FREE TEXT/NARRATIVE: ED with c/o headache pressure type across top of head and intermittent sharp ear pain bilaterally for one week. Intermittent Dizziness worse with rolling over in bed or while walking, No chest pain SOB or palpitation. Nausea associated with dizziness. Tylenol helps some. No weakness. No fever or chills. Covid results pending. Exposed to grand children 2 weeks ago. 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 Headache Pain Score (Numeric/FACES): 6 - Related Data Allergies Allergy/AdvReac Type Severity Reaction Status Date / Time clindamycin Allergy Rash Verified 09/18/20 20:17 Gold Salts Allergy Rash Verified 09/18/20 20:17 ibuprofen Allergy Rash Verified 09/18/20 20:17 Penicillins Allergy Rash Verified 09/18/20 20:17 tramadol [From Ultram] Allergy Rash Verified 09/18/20 20:17 hydrocodone AdvReac Headache Verified 09/18/20 20:17 Home Meds: Home Meds Multivitamin [Multivitamins] 1 tab PO DAILY 03/08/18 [History] Golimumab [Simponi] 50 mg SQ ASDIRECTED 03/30/19 [History] Acetaminophen [Acetaminophen Extra Strength] 500 mg PO Q8H PRN 09/18/20 [History] Doxycycline Hyclate 100 mg PO BID 09/18/20 [History] Leflunomide 20 mg PO DAILY 09/18/20 [History] Pantoprazole Sodium [Protonix] 40 mg PO BID 09/18/20 [History] Sucralfate [Carafate] 1 gm PO QID 09/18/20 [History] Past Medical History HEENT History: Reports: Cataract, Impaired Vision, Retinal Detachment, Other (See Below) Other HEENT History: DRY EYES. WEARS CORRECTIVE EYEWARE & CONTACT LENS IN LEFT EYE. 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: , Spontaneous , Other (See Below) Other FRUIT COORDINATOR History: PREMENOPAUSAL Musculoskeletal History: Reports: RA Neurological History: Reports: None Psychiatric History: Reports: Depression Endocrine/Metabolic History: Reports: Obesity/BMI 30+ Hematologic History: Reports: Anemia, Blood Transfusion(s) Immunologic History: Reports: Immunosuppression Oncologic (Cancer) History: Reports: None Dermatologic History: Reports: None - Infectious Disease History Infectious Disease History: Reports: Chicken Pox, Rheumatic Fever - Past Surgical History Head Surgeries/Procedures: Reports: None HEENT Surgical History: Reports: Cataract Surgery, Eye Surgery Other HEENT Surgeries/Procedures: surg for detached retina. INTRAOCULAR LENS IMPLANT RIGHT EYE Cardiovascular Surgical History: Reports: None Respiratory Surgical History: Reports: None GI Surgical History: Reports: Colonoscopy, EGD Female Surgical History: Reports: Section Endocrine Surgical History: Reports: None Neurological Surgical History: Reports: None Musculoskeletal Surgical History: Reports: Knee Replacement, Other (See Below) Other Musculoskeletal Surgeries/Procedures:: Right knee orthroscopy. Foot surgery, left foot 1st metatarsal cuneiform arthrodesis/bunionectomy Oncologic Surgical History: Reports: None Dermatological Surgical History: Reports: None Social & Family History - Family History HEENT: Reports: Cataract, Retinal Detachment Cardiac: Reports: Hypertension, [place] Respiratory: Reports: None GI: Reports: None, Other (See Below) Other GI Family History: HEPATIC FAILURE(R/T ALCOHOLISM) - FATHER : Reports: Renal Disease/Insufficiency OBGYN: Reports: None Musculoskeletal: Reports: Arthritis Neurological: Reports: Seizure Psychiatric: Reports: None Endocrine/Metabolic: Reports: Diabetes, Type I, Diabetes, type II Hematologic: Reports: None Immunologic: Reports: None Oncologic: Reports: Colon - Caffeine Use Caffeine Use: Reports: Coffee Other Caffeine Use: APPROX 5 CUPS DAILY ED ROS GENERAL - Review of Systems Review Of Systems: Comprehensive ROS is negative, except as noted in HPI. - Physical Exam Exam: See Below Exam Limited By: No Limitations General Appearance: Alert, Mild Distress Eye Exam: Bilateral Eye: EOMI, PERRL Ears: Normal External Exam, Hearing Grossly Normal, Normal TMs Nose: Normal Inspection Throat/Mouth: Normal Inspection, Normal Oropharynx, Normal Voice, No Airway Compromise Head Exam: Atraumatic, Normocephalic Neck: Normal Inspection, Non-Tender, Full Range of Motion Respiratory/Chest: No Respiratory Distress, Lungs Clear, Normal Breath Sounds Cardiovascular: Normal Peripheral Pulses, Regular Rate, Rhythm, No Edema. No: Diastolic Murmur, Systolic Murmur GI/Abdominal: Normal Bowel Sounds, Non-Tender Neuro Exam (Abbreviated): Alert, Oriented, CN II-XII Intact, Normal Cognition, Normal Gait, Normal Reflexes, No Motor/Sensory Deficits Extremities: Normal Inspection Psychiatric: Normal Affect, Normal Mood Skin Exam: Warm, Dry, Intact, Normal Color Course - Vital Signs Last Recorded V/S: Last Vital Signs Temp 96.7 F L 09/18/20 20:59 Pulse 87 09/18/20 20:59 Resp 19 09/18/20 20:59 BP 133/87 09/18/20 20:59 Pulse Ox 97 09/18/20 20:59 Orthostatic Blood Pressure [ 144/81 Supine] Orthostatic Blood Pressure [ 161/93 Standing] Orthostatic Blood Pressure [ 157/86 Sitting] - Orders/Labs/Meds Labs: Laboratory Tests 09/18/20 09/18/20 09/18/20 Range/Units 21:05 21:26 21:26 WBC 6.0 (5.0-10.0) 10^3/uL RBC 4.89 (4.2-5.4) 10^6/uL Hgb 13.7 (12.0-16.0) g/dL Hct 41.3 (37.0-47.0) % MCV 84.5 (80-100) fL MCH 28.0 (27.0-34.0) pg MCHC 33.2 (33.0-35.0) g/dL Plt Count 177 (150-450) 10^3/uL Neut % (Auto) 52.1 (42.2-75.2) % Lymph % (Auto) 33.2 (20.5-50.1) % [place] % (Auto) 12.3 H (2-8) % Eos % (Auto) 1.7 (1.0-3.0) % Baso % (Auto) 0.7 (0.0-1.0) % Sodium 141 (136-145) mmol/L Potassium 4.0 (3.5-5.1) mmol/L Chloride 105 (98-107) mmol/L Carbon Dioxide 30 (21-32) mmol/L Anion Gap 10.0 (7-13) mEq/L BUN 16 (7-18) mg/dL Creatinine 0.91 (0.55-1.02) mg/dL Est Cr Clr Drug Dosing 67.70 mL/min Estimated GFR (MDRD) > 60 BUN/Creatinine Ratio 17.6 (No establ ref range) Glucose 98 (74-99) mg/dL Calcium 8.4 L (8.5-10.1) mg/dL Total Bilirubin 0.4 (0.2-1.0) mg/dL AST 15 (15-37) U/L ALT 27 (14-59) U/L Alkaline Phosphatase 120 H (46-116) U/L Total Protein 7.0 (6.4-8.2) g/dL Albumin 3.0 L (3.4-5.0) g/dL Globulin 4.0 Albumin/Globulin Ratio 0.75 Urine Color (YELLOW) Urine Appearance (CLEAR) Urine pH (5.0-9.0) Ur Specific [place] (1.005-1.030) Urine Protein (NEGATIVE) Urine Glucose (UA) (NEGATIVE) Urine Ketones (NEGATIVE) Urine Occult Blood (NEGATIVE) Urine Nitrite (NEGATIVE) Urine Bilirubin (NEGATIVE) Urine Urobilinogen (0.2-1.0) mg/dL Ur Leukocyte Esterase (NEGATIVE) Urine RBC /HPF Urine WBC (0-5/HPF) /HPF Ur Epithelial Cells (NOT SEEN) /HPF Amorphous Sediment (NOT SEEN) /HPF Urine Bacteria (0-FEW/HPF) /HPF Urine Mucus (NOT SEEN) /LPF SARS CoV-2 RNA Rapid TRAY Negative (NEGATIVE) 09/18/20 Range/Units 21:42 WBC (5.0-10.0) 10^3/uL RBC (4.2-5.4) 10^6/uL Hgb (12.0-16.0) g/dL Hct (37.0-47.0) % MCV (80-100) fL MCH (27.0-34.0) pg MCHC (33.0-35.0) g/dL Plt Count (150-450) 10^3/uL Neut % (Auto) (42.2-75.2) % Lymph % (Auto) (20.5-50.1) % [place] % (Auto) (2-8) % Eos % (Auto) (1.0-3.0) % Baso % (Auto) (0.0-1.0) % Sodium (136-145) mmol/L Potassium (3.5-5.1) mmol/L Chloride (98-107) mmol/L Carbon Dioxide (21-32) mmol/L Anion Gap (7-13) mEq/L BUN (7-18) mg/dL Creatinine (0.55-1.02) mg/dL Est Cr Clr Drug Dosing mL/min Estimated GFR (MDRD) BUN/Creatinine Ratio (No establ ref range) Glucose (74-99) mg/dL Calcium (8.5-10.1) mg/dL Total Bilirubin (0.2-1.0) mg/dL AST (15-37) U/L ALT (14-59) U/L Alkaline Phosphatase (46-116) U/L Total Protein (6.4-8.2) g/dL Albumin (3.4-5.0) g/dL Globulin Albumin/Globulin Ratio Urine Color Yellow (YELLOW) Urine Appearance Slightly cloudy (CLEAR) Urine pH 6.5 (5.0-9.0) Ur Specific [place] >= 1.030 (1.005-1.030) Urine Protein Negative (NEGATIVE) Urine Glucose (UA) Negative (NEGATIVE) Urine Ketones Negative (NEGATIVE) Urine Occult Blood Trace-lysed H (NEGATIVE) Urine Nitrite Negative (NEGATIVE) Urine Bilirubin Negative (NEGATIVE) Urine Urobilinogen 0.2 (0.2-1.0) mg/dL Ur Leukocyte Esterase Negative (NEGATIVE) Urine RBC 5-10 H /HPF Urine WBC 0-5 (0-5/HPF) /HPF Ur Epithelial Cells Few (NOT SEEN) /HPF Amorphous Sediment Few (NOT SEEN) /HPF Urine Bacteria Few (0-FEW/HPF) /HPF Urine Mucus Rare (NOT SEEN) /LPF SARS CoV-2 RNA Rapid TRAY (NEGATIVE) Meds: Medications Discontinued Medications Generic Name Dose Route Start Last Admin Trade Name Freq PRN Reason Stop Dose Admin Meclizine HCl 25 mg 09/18/20 22:29 09/18/20 22:43 Antivert PO 09/18/20 22:30 25 mg ONETIME ONE Administration Ondansetron HCl 4 mg 09/18/20 22:38 09/18/20 22:42 Zofran Odt PO 09/18/20 22:39 4 mg ONETIME ONE Administration Departure - Departure Time of Disposition: 22:30 Disposition: Home, Self-Care 01 Condition: Good Clinical Impression: Headache Qualifiers: Headache type: unspecified Headache chronicity pattern: episodic headache Intractability: not intractable Qualified Code(s): R51.9 - Headache, unspecified - Discharge Information *PRESCRIPTION DRUG MONITORING PROGRAM REVIEWED*: No *COPY OF PRESCRIPTION DRUG MONITORING REPORT IN PATIENT MICHAEL: No Instructions: Vertigo, [id number], General Headache Without Cause, [id number] Forms: ED Department Discharge Additional Instructions: rest change positions slowly humidifier in room at night meclizine 25mg every 8 hours as needed for dizziness tylenol 650mg every 4 hours as needed for discomfort increase fluids follow up if symptoms not improving or worsening Sepsis Event Note (ED) - Evaluation Sepsis Screening Result: No Definite Risk - Focused Exam Vital Signs: Vital Signs Temp Pulse Resp BP Pulse Ox 09/18/20 20:59 96.7 F L 87 19 133/87 97 09/18/20 19:50 97.4 F 77 17 118/79 98
[2020-09-18 21:00] VITALS: BP 133/87; PULSE 87
--- NOTE | 2020-09-18 21:49 | CT ---
PROCEDURE INFORMATION: Exam: CT Head Without Contrast Exam date and time: 09/18/2020 9:33 PM Age: 54 years old Clinical indication: Pain; Headache not specified TECHNIQUE: Imaging protocol: Computed tomography of the head without contrast. Radiation optimization: All CT scans at this facility use at least one of these dose optimization techniques: automated exposure control; mA and/or kV adjustment per patient size (includes targeted exams where dose is matched to clinical indication); or iterative reconstruction. COMPARISON: CT Head wo Cont 09/01/2019 4:37 PM FINDINGS: Brain: No evidence for acute transcortical infarct. No mass effect or midline shift. No extra-axial collection. No acute intracranial hemorrhage. Basal cisterns are patent. Cerebral ventricles: No ventriculomegaly. Bones/joints: Unremarkable. No acute fracture. Paranasal sinuses: Visualized sinuses are unremarkable. No fluid levels. Mastoid air cells: Visualized mastoid air cells are well aerated. Soft tissues: Unremarkable. IMPRESSION: No hydrocephalus, acute intracranial hemorrhage, or mass effect.
[2020-09-18 21:51] LABS: CHLORIDE,CL 105 mmol/L (98-107); SODIUM,NA 141 mmol/L (136-145)
[2020-09-18] MEDS ORDERED: Meclizine 12.5 MG Tab PO ONE (22:29)
[2020-09-18] MEDS ORDERED: Ondansetron 4 MG Tab.DIS PO ONE (22:38)
== END 2020-09-18 22:44 | disposition home or self-care (01) ==
LOC: DL.ED 19:25
DX: R51.9 Headache, unspecified (principal); K21.9 Gastro-esophageal reflux disease without esophagitis; E66.9 Obesity, unspecified; Z68.33 Body mass index [BMI] 33.0-33.9, adult; Z20.828 Contact with and (suspected) exposure to other viral communicable diseases; Z88.1 Allergy status to other antibiotic agents; Z91.048 Other nonmedicinal substance allergy status; Z88.6 Allergy status to analgesic agent; Z88.5 Allergy status to narcotic agent; Z88.0 Allergy status to penicillin
CPT/HCPCS: 36415; 70450; 80053; 81001; 85025; 93005; 99284-25; A9270-GY; U0002

== ENCOUNTER 2020-11-15 12:24 | Emergency (ER) | payer MEDICARE, OTHER ==
[2020-11-15] MEDS ORDERED: HYDROmorphone 1 MG/ML Syringe IVPUSH ONE ×2 (12:34→13:33)
--- NOTE | 2020-11-15 12:34 | EDM.PDOC ---
ED HPI GENERAL MEDICAL PROBLEM - General Time Seen by Provider: 11/15/20 12:32 Source of Information: Reports: Patient, EMS, EMS Notes Reviewed, RN, RN Notes Reviewed History Limitations: Reports: No Limitations - History of Present Illness INITIAL COMMENTS - FREE TEXT/NARRATIVE: Patient presents to the ED via EMS with complaints of left lower extremity deformity following a fall from standing height. The patient reports she s lipped on the ice today and noted significant pain in her ankle. She called EMS when she noted a deformity to her ankle. She denies loss of motor function distal to the deformity. She states she did not hit or head and had not LOC. Per EMS the patient was given a total of Fentanyl 50mcg intranasally x4 which has provided mild alleviation of her pain. She attests to a history of a bunionectomy on this extremity. - Related Data Allergies Allergy/AdvReac Type Severity Reaction Status Date / Time clindamycin Allergy Rash Verified 11/15/20 13:21 Gold Salts Allergy Rash Verified 11/15/20 13:21 ibuprofen Allergy Rash Verified 11/15/20 13:21 Penicillins Allergy Rash Verified 11/15/20 13:21 tramadol [From Ultram] Allergy Rash Verified 11/15/20 13:21 hydrocodone AdvReac Headache Verified 11/15/20 13:21 Home Meds: Home Meds Multivitamin [Multivitamins] 1 tab PO DAILY 03/08/18 [History] Golimumab [Simponi] 50 mg SQ ASDIRECTED 03/30/19 [History] Acetaminophen [Acetaminophen Extra Strength] 500 mg PO Q8H PRN 09/18/20 [History] Doxycycline Hyclate 100 mg PO BID 09/18/20 [History] Leflunomide 20 mg PO DAILY 09/18/20 [History] Pantoprazole Sodium [Protonix] 40 mg PO BID 09/18/20 [History] Sucralfate [Carafate] 1 gm PO QID 09/18/20 [History] Past Medical History HEENT History: Reports: Cataract, Impaired Vision, Retinal Detachment, Other (See Below) Other HEENT History: DRY EYES. WEARS CORRECTIVE EYEWARE & CONTACT LENS IN LEFT EYE. 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 Musculoskeletal History: Reports: RA Neurological History: Reports: None Psychiatric History: Reports: Depression Endocrine/Metabolic History: Reports: Obesity/BMI 30+ Hematologic History: Reports: Anemia, Blood Transfusion(s) Immunologic History: Reports: Immunosuppression Oncologic (Cancer) History: Reports: None Dermatologic History: Reports: None - Infectious Disease History Infectious Disease History: Reports: Chicken Pox, Rheumatic Fever - Past Surgical History Head Surgeries/Procedures: Reports: None HEENT Surgical History: Reports: Cataract Surgery, Eye Surgery Other HEENT Surgeries/Procedures: surg for detached retina. INTRAOCULAR LENS IMPLANT RIGHT EYE Cardiovascular Surgical History: Reports: None Respiratory Surgical History: Reports: None GI Surgical History: Reports: Colonoscopy, EGD Female Surgical History: Reports: Section Endocrine Surgical History: Reports: None Neurological Surgical History: Reports: None Musculoskeletal Surgical History: Reports: Knee Replacement, Other (See Below) Other Musculoskeletal Surgeries/Procedures:: Right knee orthroscopy. Foot surgery, left foot 1st metatarsal cuneiform arthrodesis/bunionectomy Oncologic Surgical History: Reports: None Dermatological Surgical History: Reports: None Social & Family History - Family History HEENT: Reports: Cataract, Retinal Detachment Cardiac: Reports: Hypertension, [place] Respiratory: Reports: None GI: Reports: None, Other (See Below) Other GI Family History: HEPATIC FAILURE(R/T ALCOHOLISM) - FATHER : Reports: Renal Disease/Insufficiency OBGYN: Reports: None Musculoskeletal: Reports: Arthritis Neurological: Reports: Seizure Psychiatric: Reports: None Endocrine/Metabolic: Reports: Diabetes, Type I, Diabetes, type II Hematologic: Reports: None Immunologic: Reports: None Oncologic: Reports: Colon - Caffeine Use Caffeine Use: Reports: Coffee Other Caffeine Use: APPROX 5 CUPS DAILY Review of Systems - Review of Systems Review Of Systems: Comprehensive ROS is negative, except as noted in HPI. ED EXAM, GENERAL - Physical Exam Exam: See Below Exam Limited By: No Limitations General Appearance: Alert, Moderate Distress (Pain to left ankle) Eye Exam: Bilateral Eye: EOMI, Normal Inspection, PERRL (4mm) Respiratory/Chest: No Respiratory Distress, Lungs Clear, Normal Breath Sounds, No Accessory Muscle Use, Chest Non-Tender Cardiovascular: Normal Peripheral Pulses, Regular Rate, Rhythm, No Edema, No Gallop, JVD, Systolic Murmur (2/6, greatest over tricuspid area) Peripheral Pulses: 1+: Posterior Tibial (L), Posterior Tibial (R), 2+: Radial (L), Radial (R), Dorsalis Pedis (L), Dorsalis Pedis (R) GI/Abdominal: Normal Bowel Sounds, Soft, Non-Tender, No Distention, No Mass, Pelvis Stable Extremities: No Pedal Edema, Normal Capillary Refill, Leg Pain (Deformity to left ankle), Limited Range of Motion (Gross defomormity to left ankle), Increased Warmth (Gross deformity to left ankle), Other (Palpable pulses distal to gross deformity) Neurological: Alert, Oriented, CN II-XII Intact, Normal Cognition, Normal Gait, No Motor/Sensory Deficits Psychiatric: Normal Affect, Normal Mood Skin Exam: Warm, Dry, Intact, No Rash, Ecchymosis (To left ankle), Erythema (To left ankle), Increased Warmth (To left ankle), Wound/Incision (Gross deformity to left ankle). No: Mottled, Pallor, Petechiae, Rash ED TRAUMA EXTREMITY PROCEDURES - Splinting Left Lower Extremity Pre-Procedure NV Status: Normal Post-Procedure NV Status: Normal Splint Material: Air Splint Splint Design: Posterior, Other (Provisional) Applied & Form Fitted By: Provider Provider Post-Splint Application NV Check: NV Status Normal Complications: No Course - Vital Signs Last Recorded V/S: Last Vital Signs Temp 98.1 F 11/15/20 12:30 Pulse 87 11/15/20 12:30 Resp 16 11/15/20 12:30 BP 121/64 11/15/20 12:30 Pulse Ox 98 11/15/20 12:30 - Orders/Labs/Meds Orders: Active Orders 24 hr Category Date Time Status Foot 2V Lt [CR] Urgent Exams 11/15/20 13:39 Stop Req Labs: Laboratory Tests 11/15/20 Range/Units 12:30 WBC 7.7 (5.0-10.0) 10^3/uL RBC 4.83 (4.2-5.4) 10^6/uL Hgb 13.6 (12.0-16.0) g/dL Hct 40.3 (37.0-47.0) % MCV 83.4 (80-100) fL MCH 28.2 (27.0-34.0) pg MCHC 33.7 (33.0-35.0) g/dL Plt Count 161 (150-450) 10^3/uL Neut % (Auto) 62.7 (42.2-75.2) % Lymph % (Auto) 26.2 (20.5-50.1) % [place] % (Auto) 9.0 H (2-8) % Eos % (Auto) 1.7 (1.0-3.0) % Baso % (Auto) 0.4 (0.0-1.0) % Meds: Medications Discontinued Medications Generic Name Dose Route Start Last Admin Trade Name Freq PRN Reason Stop Dose Admin Hydromorphone HCl 2 mg 11/15/20 12:34 11/15/20 12:36 Dilaudid IVPUSH 11/15/20 12:35 2 mg ONETIME ONE Administration Hydromorphone HCl 2 mg 11/15/20 13:33 11/15/20 13:47 Dilaudid IVPUSH 11/15/20 13:34 2 mg ONETIME ONE Administration Hydroxyzine HCl Confirm 11/15/20 14:00 11/15/20 14:03 Atarax Administered 11/15/20 14:01 25 mg Dose Administration 25 mg .ROUTE .STK-MED ONE - Radiology Interpretation Free Text/Narrative:: Images pushed to [facility] in [place] for review by Dr. Gifford, orthopedic surgeon. PACS not availbale Departure - Departure Time of Disposition: 13:38 Disposition: DC/Tfer to Acute Hospital 02 Condition: Good Clinical Impression: Fracture of ankle - Discharge Information Forms: Interfacility Transfer [facility] Sepsis Event Note (ED) - Focused Exam Vital Signs: Vital Signs Temp Pulse Resp BP Pulse Ox 11/15/20 12:30 98.1 F 87 16 121/64 98 - My Orders Last 24 Hours: My Active Orders 11/15/20 13:39 Foot 2V Lt [CR] Urgent - Assessment/Plan Last 24 Hours: My Active Orders 11/15/20 13:39 Foot 2V Lt [CR] Urgent
[2020-11-15 13:26] VITALS: BP 121/64; PULSE 87
--- NOTE | 2020-11-15 13:46 | CR ---
PROCEDURE INFORMATION: Exam: XR Left Foot Exam date and time: 11/15/2020 12:43 PM Age: 54 years old Clinical indication: Injury or trauma; Fall; Swelling (edema); Ankle and foot; Left; Additional info: Fall on ice; Gross deformity to ankle TECHNIQUE: Imaging protocol: XR Left foot. Views: 1 or 2 views. COMPARISON: No relevant prior studies available. 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 There is fusion across the 1st MTP joint. There is posterior dislocation of the talus with respect to the distal tibia. Fractures noted at the distal tibia and fibula. Soft tissues: There is soft tissue swelling appreciated. IMPRESSION: 1. There is posterior dislocation of the talus with respect to the distal tibia. 2. Fractures noted at the distal tibia and fibula.
--- NOTE | 2020-11-15 13:47 | CR ---
PROCEDURE INFORMATION: Exam: XR Left Ankle Exam date and time: 11/15/2020 12:51 PM Age: 54 years old Clinical indication: Injury or trauma; Fall; Swelling (edema); Ankle and foot; Left; Additional info: Fall on ice; Gross deformity to ankle TECHNIQUE: Imaging protocol: XR Left ankle. Views: 1 or 2 views. COMPARISON: CR Foot 2V Lt 11/15/2020 12:43 PM FINDINGS: Bones/joints: Posterior dislocation of the talus with respect to the distal tibia. Displaced fractures of the medial and lateral malleoli. Possible fracture of the posterior tibia. Soft tissues: There is soft tissue swelling appreciated. IMPRESSION: 1. Posterior dislocation of the talus with respect to the distal tibia. 2. Displaced fractures of the medial and lateral malleoli. 3. Possible fracture of the posterior tibia.
[2020-11-15] MEDS ORDERED: hydrOXYzine HCl 25 MG Tab ONE (14:00)
[2020-11-15] MEDS ORDERED: hydrOXYzine HCl 25 MG Tab PO ONE (14:31)
== END 2020-11-15 14:23 ==
LOC: DL.ED 12:24
DX: S82.62XA Displaced fracture of lateral malleolus of left fibula, initial encounter for closed fracture (principal); S82.52XA Displaced fracture of medial malleolus of left tibia, initial encounter for closed fracture; K21.9 Gastro-esophageal reflux disease without esophagitis; E66.9 Obesity, unspecified; Z68.35 Body mass index [BMI] 35.0-35.9, adult; Z88.1 Allergy status to other antibiotic agents; Z20.822 Contact with and (suspected) exposure to COVID-19; Z91.048 Other nonmedicinal substance allergy status; Z88.6 Allergy status to analgesic agent; Z88.0 Allergy status to penicillin; Z88.5 Allergy status to narcotic agent; Z79.899 Other long term (current) drug therapy; W17.89XA Other fall from one level to another, initial encounter
CPT/HCPCS: 36415; 73600; 73620; 85025; 96374; 96376; 99284; 99285; A9270; J1170; U0002

== ENCOUNTER 2025-08-30 06:02 | Day surgery (SDC) | payer MEDICARE, OTHER ==
[2025-08-30] MEDS ORDERED: Propofol 200 MG/20 ML SDV ONE (06:05)
[2025-08-30] MEDS: Lactated Ringers 1,000 ML IV SCH (07:02)
[2025-08-30 09:22] VITALS: BP 125/68; PULSE 68
== END 2025-08-30 09:15 | disposition home or self-care (01) ==
LOC: DL.ENDO 06:02
PROVIDERS: ATTEND Internal Medicine Gastroenterology
DX: K25.9 Gastric ulcer, unspecified as acute or chronic, without hemorrhage or perforation (principal); K21.9 Gastro-esophageal reflux disease without esophagitis; E78.5 Hyperlipidemia, unspecified; I10 Essential (primary) hypertension; M06.9 Rheumatoid arthritis, unspecified; Z88.8 Allergy status to other drugs, medicaments and biological substances; Z88.5 Allergy status to narcotic agent; Z88.0 Allergy status to penicillin; Z91.09 Other allergy status, other than to drugs and biological substances; Z87.891 Personal history of nicotine dependence
CPT/HCPCS: 00731; 88305; J7120

== ENCOUNTER 2025-09-17 06:10 | Day surgery (SDC) | payer MEDICARE, OTHER ==
[2025-09-17] MEDS ORDERED: Propofol 200 MG/20 ML SDV IV ONE (06:11)
[2025-09-17] MEDS ORDERED: Lactated Ringers 1,000 ML IV ONE (06:11)
[2025-09-17] MEDS: Lactated Ringers 1,000 ML IV SCH (06:36)
[2025-09-17 08:14] VITALS: BP 152/76; PULSE 56
[2025-09-17] MEDS ORDERED: Propofol 200 MG/20 ML SDV ONE (09:48)
== END 2025-09-17 08:25 | disposition home or self-care (01) ==
LOC: DL.ENDO 06:10
PROVIDERS: ATTEND Internal Medicine Gastroenterology
DX: K57.30 Diverticulosis of large intestine without perforation or abscess without bleeding (principal); K64.8 Other hemorrhoids; I10 Essential (primary) hypertension; Z88.8 Allergy status to other drugs, medicaments and biological substances; Z88.0 Allergy status to penicillin
CPT/HCPCS: 45378; J2704; J7120